=== PATIENT | female | born 1955 | race Caucasian/White ===

== ENCOUNTER 2018-06-25 11:41 | Outpatient (CLI) | payer BC ==
--- NOTE | 2018-06-25 15:22 | MRI ---
MRI BRAIN WITH AND WITHOUT CONTRAST: Date: 06/25/18 INDICATION: Persistent headache. FINDINGS: There is normal size and ventricular system. No evidence of acute territorial infarction, intracrania l mass effect, or midline shift. There are no significant signal abnormalities of the brain parenchym a. No pathologic intra-axial enhancement. IMPRESSION: Normal contrast enhanced brain MRI. POS: [facility]
== END 2018-06-25 11:42 | disposition home or self-care (01) ==
LOC: BICMRI 11:41
PROVIDERS: ATTEND Family Medicine
DX: G43.919 Migraine, unspecified, intractable, without status migrainosus (principal)
CPT/HCPCS: 70553; 82565

== ENCOUNTER 2019-01-28 11:00 | Outpatient (CLI) | payer BC ==
--- NOTE | 2019-01-28 11:31 | MMO ---
Bilateral MAMMO Bilat Screen [facility]. CLINICAL HISTORY: Patient is 63 years old and is seen for screening. The patient has no family history of breast cancer. The patient has no personal history of cancer. VIEWS: The views performed were: bilateral craniocaudal with tomosynthesis and bilateral mediolateral oblique with tomosynthesis. FILMS COMPARED: The present examination has been compared to prior imaging studies performed at [facility] on 06/22/2012 and 01/25/2016, and at [facility] on 02/08/2009 and 02/27/2011. MAMMOGRAM FINDINGS: There are scattered fibroglandular densities. There are stable benign appearing calcifications seen in the right breast. There are no suspicious masses, suspicious calcifications, or new areas of architectural distortion. IMPRESSION: THERE IS NO MAMMOGRAPHIC EVIDENCE OF MALIGNANCY. A ROUTINE FOLLOW-UP MAMMOGRAM IN 1 YEAR IS RECOMMENDED. THE RESULTS OF THIS EXAM WERE SENT TO THE PATIENT. ACR BI-RADS Category 2 - Benign finding MAMMOGRAPHY NOTE: 1. A negative mammogram report should not delay a biopsy if a dominant of clinically suspicious mass is present. 2. Approximately 10% to 15% of breast cancers are not detected by mammography. 3. Adenosis and dense breasts may obscure an underlying neoplasm.
== END 2019-01-28 11:01 | disposition home or self-care (01) ==
LOC: BICMAMMO 11:00
PROVIDERS: ATTEND Family Medicine
DX: Z12.31 Encounter for screening mammogram for malignant neoplasm of breast (principal)
CPT/HCPCS: 77063; 77067

== ENCOUNTER 2019-07-06 13:00 | Outpatient (CLI) | payer BC ==
--- NOTE | 2019-07-06 13:40 | ULT ---
RIGHT LOWER EXTREMITY VENOUS ULTRASOUND WITH DOPPLER: HISTORY: Varicose veins with inflammation. COMPARISON: None. TECHNIQUE: Rodgers-scale, color-flow, Doppler imaging and spectral wave-form analysis of the right lower extremity venous system. FINDINGS: There is compressibility, presence of flow and augmentation in the common femoral vein, femoral vein and popliteal vein. There is flow in the posterior tibial vein. Distal to the knee, along the medial aspect of the lower extremity are prominent veins with echogenic material. There is absence of compressibility and absence flow, compatible with thrombosis of the greater saphenous vein. IMPRESSION: 1. No evidence of thrombus in the right lower extremity deep venous system. 2. 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 CODE T Transcribed Date/Time: 07/06/2019 1:53 PM
== END 2019-07-06 13:01 | disposition home or self-care (01) ==
LOC: SCSULT 13:00
PROVIDERS: ATTEND Family Medicine
DX: I83.11 Varicose veins of right lower extremity with inflammation (principal); I80.01 Phlebitis and thrombophlebitis of superficial vessels of right lower extremity
CPT/HCPCS: 36415; 85379

== ENCOUNTER 2020-02-08 14:18 | Outpatient (CLI) | payer BC ==
--- NOTE | 2020-02-08 16:06 | MMO ---
Bilateral MAMMO Bilat Screen [facility]. CLINICAL HISTORY: Patient is 64 years old and is seen for screening. The patient has no family history of breast cancer. The patient has no personal history of cancer. VIEWS: The views performed were: bilateral craniocaudal with tomosynthesis and bilateral mediolateral oblique with tomosynthesis. FILMS COMPARED: The present examination has been compared to prior imaging studies performed at [facility] on 06/22/2012, 01/25/2016 and 01/28/2019, and at [facility] on 02/27/2011. This study has been interpreted with the assistance of computer-aided detection. MAMMOGRAM FINDINGS: There are scattered fibroglandular densities. There are no suspicious masses, suspicious calcifications, or new areas of architectural distortion. IMPRESSION: THERE IS NO MAMMOGRAPHIC EVIDENCE OF MALIGNANCY. A ROUTINE FOLLOW-UP MAMMOGRAM IN 1 YEAR IS RECOMMENDED. THE RESULTS OF THIS EXAM WERE SENT TO THE PATIENT. ACR BI-RADS Category 1 - Negative MAMMOGRAPHY NOTE: 1. A negative mammogram report should not delay a biopsy if a dominant of clinically suspicious mass is present. 2. Approximately 10% to 15% of breast cancers are not detected by mammography. 3. Adenosis and dense breasts may obscure an underlying neoplasm. Reported by: YESSENIA TARIQ MD Electonically Signed: [id number]
--- NOTE | 2020-02-08 16:47 | BD ---
Exam: DEXA Bone Density 02/08/20 HISTORY: Postmenopausal screening for osteoporosis. FINDINGS: Lumbar Spine: BMD (g/cm2) T-SCORE Z-SCORE L1 1.206 2.0 3.5 L2 1.225 1.8 3.5 L3 1.170 0.8 2.6 L4 1.149 0.8 2.6 L1-L4 1.187 1.3 3.0 Femoral Neck: 0.733 -1.0 0.4 Total Femur: 0.987 0.4 1.5 Impression: No evidence of osteopenia/osteoporosis. POS: [facility]
== END 2020-02-08 14:19 | disposition home or self-care (01) ==
LOC: BICMAMMO 14:18
PROVIDERS: ATTEND Family Medicine
DX: Z12.31 Encounter for screening mammogram for malignant neoplasm of breast (principal); Z13.820 Encounter for screening for osteoporosis; Z78.0 Asymptomatic menopausal state
CPT/HCPCS: 77063; 77067; 77080

== ENCOUNTER 2021-02-13 14:00 | Outpatient (CLI) | payer BC | END 2021-02-13 14:01 | disposition home or self-care (01) | LOC: BICMAMMO 14:00 | PROVIDERS: ATTEND Family Medicine | DX: Z12.31 Encounter for screening mammogram for malignant neoplasm of breast (principal) | CPT/HCPCS: 77063; 77067 ==

== ENCOUNTER 2021-03-11 09:15 | Outpatient (CLI) | payer BC | END 2021-03-11 09:16 | disposition home or self-care (01) | LOC: BICULT 09:15 | PROVIDERS: ATTEND Physician Assistant Medical | DX: D12.6 Benign neoplasm of colon, unspecified (principal); R11.0 Nausea; R19.00 Intra-abdominal and pelvic swelling, mass and lump, unspecified site; R10.13 Epigastric pain; R68.81 Early satiety; R63.4 Abnormal weight loss; F41.1 Generalized anxiety disorder; K82.8 Other specified diseases of gallbladder; K76.0 Fatty (change of) liver, not elsewhere classified | CPT/HCPCS: 93975 ==

== ENCOUNTER 2021-05-27 13:30 | Outpatient (CLI) | payer BC | END 2021-05-27 13:31 | disposition home or self-care (01) | LOC: ULT 13:30 | PROVIDERS: ATTEND Neurological Surgery | DX: Q28.2 Arteriovenous malformation of cerebral vessels (principal); R51.9 Headache, unspecified | CPT/HCPCS: 93880 ==

== ENCOUNTER 2022-02-14 07:47 | Outpatient (CLI) | payer MEDICARE, BC | END 2022-02-14 07:48 | disposition home or self-care (01) | LOC: BICMAMMO 07:47 | PROVIDERS: ATTEND Family Medicine | DX: Z12.31 Encounter for screening mammogram for malignant neoplasm of breast (principal); Z13.820 Encounter for screening for osteoporosis; Z78.0 Asymptomatic menopausal state | CPT/HCPCS: 77063; 77067; 77080 ==

== ENCOUNTER 2022-08-27 08:30 | Outpatient (CLI) | payer MEDICARE, BC ==
[2022-08-27 09:18] LABS: #Basophils 0.1 10x3/uL (0.0-0.2); #Eosinphils 0.3 10x3/uL (0.0-0.5); #Monocytes 0.6 10x3/uL (0.0-1.1); #Neutrophils 4.6 10x3/uL (1.5-8.4); %Basophils 0.6 % (0.0-2.0); %Eosinophils 3.5 % (0.0-6.0); %Lymphocytes 29.3 % (18.0-47.0); %Monocytes 7.9 % (0.0-10.0); %Neutrophils 58.2 % (40.0-75.0); Hemoglobin 14.3 g/dL (12.0-15.5); Mean Corpuscular HGB CONC 33.6 g/dL (32.0-36.0); Mean Corpuscular Hemoglobin 29.2 pg (27.0-33.0); Mean Corpuscular Volume 86.7 fl (81.6-98.3); Mean Platelet Volume 10.5 fl (7.4-10.4); Platelet Count 300 10x3/uL (150-450); RBC Distribution Width 13.6 % (11.5-14.5)
[2022-08-27 09:45] LABS: Anion Gap 14 mmol/L (10-20); BUN (Urea Nitrogen) 16 mg/dL (9.8-20.1); Calc. Creatinine Clearance 0 mL/min (70-130); Calcium 8.9 mg/dL (7.8-10.44); Carbon Dioxide 24 mmol/L (23-31); Chloride 108 mmol/L (98-107); Estimated GFR 79; Glucose 139 mg/dL (80-115); Sodium 141 mmol/L (136-145)
== END 2022-08-27 08:31 | disposition home or self-care (01) ==
LOC: LABBT 08:30
PROVIDERS: ATTEND Orthopaedic Surgery Hand Surgery
DX: Z01.818 Encounter for other preprocedural examination (principal); M67.449 Ganglion, unspecified hand
CPT/HCPCS: 80048; 85025; 93005; 93010

== ENCOUNTER 2023-03-05 10:58 | Outpatient (CLI) | payer MEDICARE, BC | END 2023-03-05 10:59 | disposition home or self-care (01) | LOC: BICMAMMO 10:58 | PROVIDERS: ATTEND Family Medicine | DX: Z12.31 Encounter for screening mammogram for malignant neoplasm of breast (principal) | CPT/HCPCS: 77063; 77067 ==

== ENCOUNTER 2025-05-16 08:25 | Outpatient (CLI) | payer MEDICARE | END 2025-05-16 08:26 | disposition home or self-care (01) | LOC: BICMAMMO 08:25 | PROVIDERS: ATTEND Family Medicine | DX: Z12.31 Encounter for screening mammogram for malignant neoplasm of breast (principal) | CPT/HCPCS: 77063; 77067 ==